=== PATIENT | female | born 1950 | race Caucasian/White ===

== ENCOUNTER 2023-06-17 21:42 | Inpatient (IN) | payer MEDICARE, OTHER ==
[~2023-06-17] VITALS: Ht 167.6 cm; Wt 73.5 kg
[2023-06-17] MEDS: IV NS 0.9% 1,000 ML BAG IV ONE (22:46)
[2023-06-17] MEDS ORDERED: VANCOMYCIN 1 GM /D5W 250 ML PB IV ONE (23:07)
[2023-06-17] MEDS ORDERED: LEVOFLOXACIN 750 MG /D5W 150ML 150 ML IV ONE (23:07)
[2023-06-17] MEDS ORDERED: ACETAMINOPHEN 325 MG TABLET ONE (23:08)
[2023-06-17] MEDS: VANCOMYCIN 1 GM in IV D5W 250 ML IV ONE (23:09)
[2023-06-17] MEDS: ACETAMINOPHEN 325 MG TABLET PO ONE (23:09)
[2023-06-17] MEDS: LEVOFLOXACIN 750 MG /D5W 150ML 150 ML IV ONE (23:09)
[2023-06-17 23:15] LABS: BASOPHILS % (AUTO) 0.5 % (0.0-2.0); EOSINOPHILS # (AUTO) 0.1 K/uL (0.0-0.7); EOSINOPHILS % (AUTO) 0.5 % (0.0-6.0); HEMATOCRIT 24 % (33-45); LYMPHOCYTES # (AUTO) 0.5 K/uL (0.8-4.8); LYMPHOCYTES % (AUTO) 4.5 % (20.0-44.0); MEAN CORPUSCULAR HEMOGLOBIN 34 PG (26.0-33.0); MEAN CORPUSCULAR HGB CONC 33 g/dl (31.0-36.0); MEAN CORPUSCULAR VOLUME 103 fL (82-100); MONOCYTES # (AUTO) 0.6 K/uL (0.1-1.30); MONOCYTES % (AUTO) 5.6 % (2.0-12.0); NEUTROPHILS # (AUTO) 9.1 K/uL (1.8-8.9); NEUTROPHILS % (AUTO) 88.9 % (43.0-81.0); PLATELET COUNT (AUTO) 130 K/uL (150-450); RED BLOOD CELL COUNT(AUTO) 2.35 MIL/uL (4.0-5.2); RED CELL DISTRIBUTION WIDTH 18.5 % (11.5-15.0); WHITE BLOOD COUNT (AUTO) 10.2 K/uL (4.3-11.0)
[2023-06-17 23:28] LABS: INR 1.1 (0.91-1.10); PARTIAL THROMBOPLASTIN TIME 26.3 SEC (24.3-34.3); PROTHROMBIN TIME 11.6 SECS (9.2-11.1)
[2023-06-17 23:29] LABS: CALCIUM, SERUM 9.2 mg/dL (8.5-10.1); CARBON DIOXIDE 24 mmol/L (21-32); CHLORIDE 106 mmol/L (98-107); CREATININE 1.7 mg/dL (0.6-1.3); GLUCOSE 88 mg/dL (74-106); POTASSIUM 3.6 mmol/L (3.5-5.1); SODIUM SERUM 136 mmol/L (136-145); UREA NITROGEN, BLOOD 42 mg/dL (7-18)
[2023-06-17 23:43] LABS: ALANINE AMINOTRANSFERASE 68 U/L (12-78); ALKALINE PHOSPHATASE 364 U/L (46-116); ASPARTATE AMINOTRANSFERASE 40 U/L (15-37); BILIRUBIN,TOTAL 3.4 mg/dL (0.2-1.0); TOTAL PROTEIN, SERUM 7.7 g/dL (6.4-8.2)
[2023-06-18 00:05] LABS: ALBUMIN 1.3 g/dL (3.4-5.0); LACTIC ACID 2.3 mmol/L (0.4-2.0)
[2023-06-18 00:22] LABS: APPEARANCE,URINE CLOUDY (CLEAR); BILIRUBIN,URINE 2+ (NEGATIVE); BLOOD, URINE 3+ Ery/uL (NEGATIVE); COLOR,URINE RED (YELLOW); KETONES,URINE TRACE mg/dL (NEGATIVE); LEUKOCYTE ESTERASE ,URINE 3+ (NEGATIVE); NITRITE, URINE POSITIVE (NEGATIVE); PROTEIN,URINE 3+ mg/dl (NEGATIVE); UGLUCOSE NEGATIVE (NEGATIVE)
[2023-06-18] MEDS ORDERED: ALBUMIN 5% 250 ML IV ONE (00:37)
[2023-06-18] MEDS: ALBUMIN 5% 12.5 GM/250 ML BOTTLE IV ONE (00:39)
[2023-06-18 02:49] LABS: ADD URINE CULTURE YES; BACTERIA,URINE 4+ /HPF (None Seen); MUCUS,URINE Many /LPF (None Seen); RBC,URINE TOO NUMEROUS TO COUN /HPF (0-2); WBC,URINE TOO NUMEROUS TO COUN /HPF (0-3)
[2023-06-18] MEDS: METRONIDAZOLE 500MG/ NS 100ML 500 MG in PREMIX 1 EA IV SCH ×2 (02:57→08:43)
[2023-06-18] MEDS ORDERED: METRONIDAZOLE 500MG/ NS 100ML 100 ML IV ONE (02:57)
[2023-06-18 03:40] VITALS: BP 96/50; TEMP 99.1; O2SAT 98
[2023-06-18 04:55] VITALS: BP 96/50; TEMP 99.1; O2SAT 98
[2023-06-18 08:00] VITALS: BP 83/49; TEMP 97.7; O2SAT 100
[2023-06-18 08:39] LABS: BASOPHILS % (AUTO) 0.1 % (0.0-2.0); EOSINOPHILS % (AUTO) 0.5 % (0.0-6.0); HEMATOCRIT 22 % (33-45); LYMPHOCYTES # (AUTO) 1.2 K/uL (0.8-4.8); LYMPHOCYTES % (AUTO) 12.4 % (20.0-44.0); MEAN CORPUSCULAR HEMOGLOBIN 35 PG (26.0-33.0); MEAN CORPUSCULAR HGB CONC 32 g/dl (31.0-36.0); MEAN CORPUSCULAR VOLUME 108 fL (82-100); MONOCYTES % (AUTO) 10.4 % (2.0-12.0); NEUTROPHILS # (AUTO) 7.3 K/uL (1.8-8.9); NEUTROPHILS % (AUTO) 76.6 % (43.0-81.0); PLATELET COUNT (AUTO) 106 K/uL (150-450); RED BLOOD CELL COUNT(AUTO) 2.01 MIL/uL (4.0-5.2); RED CELL DISTRIBUTION WIDTH 19.7 % (11.5-15.0); WHITE BLOOD COUNT (AUTO) 9.5 K/uL (4.3-11.0)
[2023-06-18] MEDS: ACETAMINOPHEN 325 MG TABLET PO PRN (08:42)
[2023-06-18 09:06] LABS: HEMOGLOBIN 6.9 g/dL (11.5-14.8)
[2023-06-18 09:24] LABS: CALCIUM, SERUM 8.9 mg/dL (8.5-10.1); CARBON DIOXIDE 22 mmol/L (21-32); CHLORIDE 106 mmol/L (98-107); CREATININE 1.7 mg/dL (0.6-1.3); GLUCOSE 85 mg/dL (74-106); MAGNESIUM 1.8 mg/dL (1.8-2.4); PHOSPHORUS 1.3 mg/dL (2.5-4.9); POTASSIUM 4.2 mmol/L (3.5-5.1); SODIUM SERUM 136 mmol/L (136-145); UREA NITROGEN, BLOOD 41 mg/dL (7-18)
[2023-06-18] MEDS ORDERED: ERGO500093 PO (09:39)
[2023-06-18] MEDS ORDERED: CITA10TA9 PO (09:39)
[2023-06-18] MEDS ORDERED: ZINC1CAP3 PO (09:39)
[2023-06-18] MEDS ORDERED: LORA10TA7 PO (09:39)
[2023-06-18] MEDS ORDERED: MULT-213 PO (09:39)
[2023-06-18] MEDS ORDERED: LEVO100T PO (09:39)
[2023-06-18] MEDS ORDERED: CRAN425C6 PO (09:39)
[2023-06-18] MEDS ORDERED: ACET-868 PO (09:39)
[2023-06-18] MEDS ORDERED: PREG75CA PO (09:39)
[2023-06-18] MEDS ORDERED: FERR325T28 PO (09:39)
[2023-06-18] MEDS ORDERED: PETR113O TP (09:39)
[2023-06-18] MEDS ORDERED: CLOT15CR5 TP (09:39)
[2023-06-18] MEDS ORDERED: HYDR-500 PO (09:39)
[2023-06-18] MEDS ORDERED: LACT1CAP69 PO (09:39)
[2023-06-18] MEDS ORDERED: ONDA-97 PO (09:39)
[2023-06-18] MEDS ORDERED: LATA7.5D EACHEYE (09:39)
[2023-06-18] MEDS ORDERED: NORM10004 IV (09:39)
[2023-06-18] MEDS ORDERED: CRAN3875 PO (09:39)
[2023-06-18] MEDS ORDERED: CHOL100043 PO (09:39)
[2023-06-18] MEDS ORDERED: DEXTROSE IV (09:39)
[2023-06-18] MEDS ORDERED: OCTR100V SQ (09:39)
[2023-06-18] MEDS ORDERED: MORP15TA PO (09:39)
[2023-06-18] MEDS ORDERED: FOLI0.4T6 PO (09:39)
[2023-06-18] MEDS ORDERED: MIDO10TA PO (09:39)
[2023-06-18] MEDS ORDERED: TPN ELECTROLYTE IV (09:39)
[2023-06-18] MEDS ORDERED: CARB15DR EACHEYE (09:39)
[2023-06-18] MEDS ORDERED: VITA1TAB20 PO (09:39)
[2023-06-18] MEDS ORDERED: ASCO-340 PO (09:39)
[2023-06-18] MEDS: PREGABALIN 25 MG CAPSULE PO SCH (11:04)
[2023-06-18 11:08] LABS: BAND % (MANUAL) 1 % (0.0-5.0); LYMPHOCYTES % (MANUAL) 10 % (16-48); MONOCYTES % (MANUAL) 4 % (0-11.0); NEUTROPHILS % (MANUAL) 79 (42-76)
[2023-06-18 11:09] LABS: ANISOCYTOSIS 1+; HYPOCHROMASIA 1+; METAMYELOCYTES % 2 % (0-0); MYELOCYTES % 3 % (0-0); PLATELET ESTIMATE INCREASED; PROMYELOCYTES % 1 % (0-0)
[2023-06-18 12:00] VITALS: BP 85/48; TEMP 97.7; O2SAT 100
[2023-06-18] MEDS ORDERED: PREGABALIN 25 MG CAPSULE PO SCH ×2 (12:00→17:00)
[2023-06-18] MEDS: IV NS 0.9% 1,000 ML IV PRN (12:07)
[2023-06-18] MEDS: Sodium Phosphate 15 MMOL in IV NS 0.9% 245 ML IV SCH (12:12)
[2023-06-18] MEDS ORDERED: TPN/PPN PER PHARMACY IV PRN (13:30)
[2023-06-18] MEDS ORDERED: LORATADINE 10 MG TABLET PO PRN (13:30)
[2023-06-18] MEDS ORDERED: IV NS 0.9% 1,000 ML BAG IV PRN (14:00)
[2023-06-18] MEDS ORDERED: hydrOXYzine PAMOATE 25 MG CAPSULE PO PRN (14:30)
[2023-06-18] MEDS ORDERED: POLYVINYL ALCOHOL 15 ML BOTTLE EACHEYE PRN (14:30)
[2023-06-18] MEDS ORDERED: DEXTROSE 50%-WATER 50 ML DISP.SYRIN IV PRN (14:30)
[2023-06-18] MEDS ORDERED: Sodium Phosphate 15 MMOL in IV NS 0.9% 245 ML IV SCH (15:00)
[2023-06-18 15:58] LABS: EOSINOPHILS # (AUTO) 0.1 K/uL (0.0-0.7); LYMPHOCYTES # (AUTO) 0.8 K/uL (0.8-4.8); MONOCYTES # (AUTO) 0.7 K/uL (0.1-1.30)
[2023-06-18 16:00] VITALS: BP 85/48; TEMP 97.5; O2SAT 100
[2023-06-18 16:21] LABS: BASOPHILS % (AUTO) 0.2 % (0.0-2.0); EOSINOPHILS % (AUTO) 1.8 % (0.0-6.0); LYMPHOCYTES % (AUTO) 11.5 % (20.0-44.0); MEAN CORPUSCULAR HEMOGLOBIN 35 PG (26.0-33.0); MEAN CORPUSCULAR HGB CONC 33 g/dl (31.0-36.0); MEAN CORPUSCULAR VOLUME 104 fL (82-100); MONOCYTES % (AUTO) 9.6 % (2.0-12.0); NEUTROPHILS # (AUTO) 5.5 K/uL (1.8-8.9); NEUTROPHILS % (AUTO) 76.9 % (43.0-81.0); PLATELET COUNT (AUTO) 103 K/uL (150-450); WHITE BLOOD COUNT (AUTO) 7.1 K/uL (4.3-11.0)
[2023-06-18 16:28] LABS: RED BLOOD CELL COUNT(AUTO) 1.88 MIL/uL (4.0-5.2)
[2023-06-18 16:29] LABS: HEMATOCRIT 20 % (33-45); HEMOGLOBIN 6.5 g/dL (11.5-14.8)
[2023-06-18] MEDS ORDERED: Medication Not On Formulary EA (Cran/Vitc/Mannose/Inulin/Brom (Uti-Stat Liquid) 30 ML) PO SCH (17:00)
[2023-06-18] MEDS: BLOOD SUGAR DIAGNOSTIC 1 EACH STRIP IN SCH (17:03)
[2023-06-18 17:22] LABS: ANISOCYTOSIS 1+; LYMPHOCYTES % (MANUAL) 9 % (16-48); MONOCYTES % (MANUAL) 7 % (0-11.0); NEUTROPHILS % (MANUAL) 84 (42-76); PLATELET ESTIMATE DECREASED
[2023-06-18] MEDS: TPN BAG 1 IV SCH (18:28)
[2023-06-18 20:00] VITALS: BP 93/44; TEMP 98.2; O2SAT 100
[2023-06-18] MEDS: LATANOPROST EYE DROP 0.005% 2.5 ML BOTTLE EACHEYE SCH (23:02)
[2023-06-18] MEDS: LEVOFLOXACIN 500 MG /D5W 100ML 500 MG in PREMIX 1 EA IV SCH (23:05)
[2023-06-19] VITALS (11 sets, daily range): BP systolic 88–106; BP diastolic 40–59; TEMP 98–98.6; O2SAT 98–100
[2023-06-19] MEDS: LEVOTHYROXINE SODIUM 100 MCG TABLET PO SCH (07:32)
[2023-06-19 07:35] LABS: CREATININE, URINE 51.6 MG/DL (30.0-125.0); URINE TOTAL PROTEIN 298.1 mg/dL (0-11.9)
[2023-06-19 07:57] LABS: BASOPHILS % (AUTO) 0.2 % (0.0-2.0); EOSINOPHILS # (AUTO) 0.1 K/uL (0.0-0.7); EOSINOPHILS % (AUTO) 1.3 % (0.0-6.0); HEMATOCRIT 22 % (33-45); HEMOGLOBIN 7.5 g/dL (11.5-14.8); LYMPHOCYTES % (AUTO) 14.8 % (20.0-44.0); MEAN CORPUSCULAR HEMOGLOBIN 33 PG (26.0-33.0); MEAN CORPUSCULAR HGB CONC 34 g/dl (31.0-36.0); MEAN CORPUSCULAR VOLUME 100 fL (82-100); MONOCYTES # (AUTO) 0.7 K/uL (0.1-1.30); MONOCYTES % (AUTO) 9.4 % (2.0-12.0); NEUTROPHILS # (AUTO) 5.2 K/uL (1.8-8.9); NEUTROPHILS % (AUTO) 74.3 % (43.0-81.0); PLATELET COUNT (AUTO) 111 K/uL (150-450); RED BLOOD CELL COUNT(AUTO) 2.25 MIL/uL (4.0-5.2); RED CELL DISTRIBUTION WIDTH 20.3 % (11.5-15.0)
[2023-06-19] MEDS: CHOLECALCIFEROL 1,000 UNIT TABLET (VIT D3) PO SCH (08:31)
[2023-06-19] MEDS: ASCORBIC ACID 500 MG TABLET PO SCH (08:32)
[2023-06-19] MEDS: FOLIC ACID 1 MG TABLET PO SCH (08:32)
[2023-06-19] MEDS: CITALOPRAM HYDROBROMIDE 10 MG TABLET PO SCH (08:32)
[2023-06-19] MEDS: FERROUS SULFATE (325 MG) 325 MG/TAB TABLET PO SCH (08:32)
[2023-06-19] MEDS: ACIDOPHILUS/BULGARICUS 1 EACH TAB.CHEW PO SCH (08:32)
[2023-06-19] MEDS: ZINC SULFATE 220 MG CAPSULE PO SCH (08:32)
[2023-06-19] MEDS: MULTIVIT W/MINERALS 1 TAB TABLET PO SCH (08:32)
[2023-06-19] MEDS: VITAMIN B COMP W-C 1 TAB TABLET PO SCH (08:32)
[2023-06-19] MEDS ORDERED: Medication Not On Formulary EA (Cranberry Extract (Cranberry) 425 MG) PO SCH (09:00)
[2023-06-19 09:04] LABS: ALANINE AMINOTRANSFERASE 42 U/L (12-78); ALKALINE PHOSPHATASE 293 U/L (46-116); ASPARTATE AMINOTRANSFERASE 24 U/L (15-37); BILIRUBIN,TOTAL 3.1 mg/dL (0.2-1.0); CALCIUM, SERUM 8.4 mg/dL (8.5-10.1); CARBON DIOXIDE 22 mmol/L (21-32); CHLORIDE 103 mmol/L (98-107); CREATININE 1.6 mg/dL (0.6-1.3); GLUCOSE 100 mg/dL (74-106); MAGNESIUM 1.6 mg/dL (1.8-2.4); PHOSPHORUS 2.6 mg/dL (2.5-4.9); POTASSIUM 3.4 mmol/L (3.5-5.1); SODIUM SERUM 133 mmol/L (136-145); TOTAL PROTEIN, SERUM 6.7 g/dL (6.4-8.2); UREA NITROGEN, BLOOD 38 mg/dL (7-18)
[2023-06-19 09:09] LABS: FERRITIN 8384 ng/mL (8-388)
[2023-06-19 09:24] LABS: ALBUMIN 1.3 g/dL (3.4-5.0); IRON, SERUM 120 ug/dl (50-175); TOTAL IRON BINDING CAPACITY 117 ug/dl (250-450)
[2023-06-19 09:38] LABS: CREATINE KINASE, TOTAL 2 U/L (26-192)
[2023-06-19] MEDS: ONDANSETRON HCL/PF 4 MG/2 ML VIAL IVP PRN (10:03)
[2023-06-19] MEDS: CLOTRIMAZOLE 1% 15 GM TUBE TP SCH (10:49)
[2023-06-19] MEDS: INSULIN REGULAR, HUMAN 100 UNIT/ML 3 ML VIAL SQ PRN (11:21)
[2023-06-19] MEDS: Magnesium 1GM/D5W 100ML PREMIX 100 ML IV SCH (11:46)
[2023-06-19 11:49] LABS: RHEUMATOID FACTOR SCREEN NEGATIVE (NEGATIVE)
[2023-06-19] MEDS: POTASSIUM CL. PREMIX PERIPHER. 50 ML IV SCH (12:32)
[2023-06-19 12:44] LABS: CHOLESTEROL 97 mg/dL (<200); HDL CHOLESTEROL 12 mg/dL (40-60); LDL 38 mg/dL (0-99); TRIGLYCERIDES 232 mg/dL (30-150)
[2023-06-19] MEDS: TPN BAG #2 IV SCH (16:18)
[2023-06-19] MEDS: VANCOMYCIN HCL 1.25 GM in IV D5W 250 ML IV SCH (23:59)
[2023-06-20] VITALS (7 sets, daily range): BP systolic 100–112; BP diastolic 54–61; TEMP 98.2–99.1; O2SAT 98–100
[2023-06-20] MEDS: Z GUARD REMEDY 4 OZ OINT TP PRN (06:30)
[2023-06-20 08:03] LABS: CALCIUM, SERUM 7.8 mg/dL (8.5-10.1); CREATININE 1.3 mg/dL (0.6-1.3); MAGNESIUM 1.6 mg/dL (1.8-2.4); PHOSPHORUS 2.8 mg/dL (2.5-4.9); POTASSIUM 3.1 mmol/L (3.5-5.1)
[2023-06-20 08:07] LABS: CANCER AG, 125 28.2 U/mL (0.0-38.1); IMMUNOGLOBULIN A, SERUM 508 mg/dL (64-422); IMMUNOGLOBULIN G, SERUM 2169 mg/dL (586-1602); IMMUNOGLOBULIN M, SERUM 82 mg/dL (26-217)
[2023-06-20 09:12] LABS: HIV-1 p24 ANTIGEN NON REACTIVE (NONREACTIVE); HIV-1/2 ANTIBODY NON REACTIVE (NONREACTIVE)
[2023-06-20 11:08] LABS: *ANA ANTI-CENTROMERE B AB <0.2 AI (0.0-0.9); *ANA ANTI-DNA(DS) AB, QN <1 IU/mL (0-9); *ANA ANTI-JO-1 <0.2 AI (0.0-0.9); *ANA ANTICHROMATIN ANTIBODY <0.2 AI (0.0-0.9); *ANA RNP ANTIBODIES <0.2 AI (0.0-0.9); *ANA SJOGREN'S ANTI-SS-A <0.2 AI (0.0-0.9); *ANA SJOGREN'S ANTI-SS-B <0.2 AI (0.0-0.9); *ANAANTI-SCLERODERMA-70 AB <0.2 AI (0.0-0.9); *ANASMITH AB <0.2 AI (0.0-0.9)
[2023-06-20] MEDS: POTASSIUM CL. PREMIX PERIPHER. 50 ML IV SCH (11:25)
[2023-06-20] MEDS: Magnesium 1GM/D5W 100ML PREMIX 100 ML IV SCH (11:47)
[2023-06-20 13:06] LABS: FREE KAPPA LT CHAINS SERUM 259.9 mg/L (3.3-19.4); FREE LAMBDA LT CHAIN SERUM 122.4 mg/L (5.7-26.3); KAPPA/LAMBDA RATIO SERUM 2.12 (0.26-1.65)
[2023-06-20 14:40] LABS: EOSINOPHILS # (AUTO) 0.1 K/uL (0.0-0.7); EOSINOPHILS % (AUTO) 0.9 % (0.0-6.0)
[2023-06-20 14:47] LABS: BASOPHILS % (AUTO) 0.1 % (0.0-2.0); HEMATOCRIT 25 % (33-45); HEMOGLOBIN 8.3 g/dL (11.5-14.8); LYMPHOCYTES % (AUTO) 17.3 % (20.0-44.0); MEAN CORPUSCULAR HEMOGLOBIN 33 PG (26.0-33.0); MEAN CORPUSCULAR HGB CONC 33 g/dl (31.0-36.0); MEAN CORPUSCULAR VOLUME 99 fL (82-100); MONOCYTES # (AUTO) 0.5 K/uL (0.1-1.30); MONOCYTES % (AUTO) 8.2 % (2.0-12.0); NEUTROPHILS # (AUTO) 4.1 K/uL (1.8-8.9); NEUTROPHILS % (AUTO) 73.5 % (43.0-81.0); PLATELET COUNT (AUTO) 109 K/uL (150-450); RED BLOOD CELL COUNT(AUTO) 2.52 MIL/uL (4.0-5.2); RED CELL DISTRIBUTION WIDTH 20.7 % (11.5-15.0); WHITE BLOOD COUNT (AUTO) 5.6 K/uL (4.3-11.0)
[2023-06-20 14:49] LABS: D-DIMER 4.33 mg/L(FEU (0.17-0.50); INR 1.13 (0.91-1.10); PARTIAL THROMBOPLASTIN TIME 31.9 SEC (24.3-34.3); PROTHROMBIN TIME 11.9 SECS (9.2-11.1)
[2023-06-20] MEDS: TPN BAG #3 IV SCH (16:27)
[2023-06-20] MEDS: VANCOMYCIN 1 GM in IV D5W 250 ML IV SCH (23:54)
[2023-06-21] VITALS (7 sets, daily range): BP systolic 104–115; BP diastolic 55–62; TEMP 97.5–98.8; O2SAT 98–100
[2023-06-21 03:11] LABS: HEPATITIS B SURFACE AB Non Reactive (.)
[2023-06-21 06:56] LABS: BASOPHILS % (AUTO) 0.2 % (0.0-2.0); EOSINOPHILS # (AUTO) 0.1 K/uL (0.0-0.7); EOSINOPHILS % (AUTO) 1.5 % (0.0-6.0); HEMATOCRIT 23 % (33-45); HEMOGLOBIN 7.7 g/dL (11.5-14.8); LYMPHOCYTES # (AUTO) 1.2 K/uL (0.8-4.8); LYMPHOCYTES % (AUTO) 22.7 % (20.0-44.0); MEAN CORPUSCULAR HEMOGLOBIN 34 PG (26.0-33.0); MEAN CORPUSCULAR HGB CONC 34 g/dl (31.0-36.0); MEAN CORPUSCULAR VOLUME 100 fL (82-100); MONOCYTES # (AUTO) 0.5 K/uL (0.1-1.30); MONOCYTES % (AUTO) 9.3 % (2.0-12.0); NEUTROPHILS # (AUTO) 3.5 K/uL (1.8-8.9); NEUTROPHILS % (AUTO) 66.3 % (43.0-81.0); PLATELET COUNT (AUTO) 111 K/uL (150-450); RED BLOOD CELL COUNT(AUTO) 2.28 MIL/uL (4.0-5.2); RED CELL DISTRIBUTION WIDTH 20.3 % (11.5-15.0); WHITE BLOOD COUNT (AUTO) 5.4 K/uL (4.3-11.0)
[2023-06-21 07:19] LABS: OCCULT BLOOD STOOL NEGATIVE (NEGATIVE)
[2023-06-21 07:22] LABS: CALCIUM, SERUM 7.4 mg/dL (8.5-10.1); CREATININE 1.3 mg/dL (0.6-1.3); MAGNESIUM 2.1 mg/dL (1.8-2.4); PHOSPHORUS 2.5 mg/dL (2.5-4.9); POTASSIUM 3.3 mmol/L (3.5-5.1)
[2023-06-21 08:10] LABS: FOLIC ACID > 20.0 ng/mL (>3.0)
[2023-06-21] MEDS: POTASSIUM PHOSPHATE MM 7.5 MMOL in IV NS 0.9% 100 ML IV SCH (11:54)
[2023-06-21] MEDS: FAT EMULSION 20% 500 ML in PREMIX 1 EA IV SCH (14:20)
[2023-06-21] MEDS: POTASSIUM CL. PREMIX PERIPHER. 50 ML IV SCH (15:43)
[2023-06-21] MEDS: TPN BAG #4 IV SCH (16:16)
[2023-06-21] MEDS: POTASSIUM CHLORIDE 20 MEQ TAB.PRT.SR PO ONE (17:57)
[2023-06-22] VITALS: BP 118/62; TEMP 99; O2SAT 100
[2023-06-22] MEDS: MORPHINE SULFATE IR 15 MG TABLET PO PRN (03:53)
[2023-06-22 04:00] VITALS: BP 114/64; TEMP 98.6; O2SAT 100
[2023-06-22 04:06] LABS: *SPE A/G RATIO 0.4 (0.7-1.7); *SPE ALBUMIN 1.8 g/dL (2.9-4.4); *SPE ALPHA-1-GLOBULIN 0.3 g/dL (0.0-0.4); *SPE ALPHA-2-GLOBULIN 0.7 g/dL (0.4-1.0); *SPE BETA GLOBULIN 0.9 g/dL (0.7-1.3); *SPE GLOBULIN, TOTAL 4.2 g/dL (2.2-3.9); *SPE M-SPIKE Not Observed g/dL (Not Observed); *SPEGAMMA GLOBULIN 2.3 g/dL (0.4-1.8)
[2023-06-22 06:56] LABS: BASOPHILS % (AUTO) 0.2 % (0.0-2.0); EOSINOPHILS # (AUTO) 0.1 K/uL (0.0-0.7); EOSINOPHILS % (AUTO) 1.2 % (0.0-6.0); HEMATOCRIT 25 % (33-45); HEMOGLOBIN 8.4 g/dL (11.5-14.8); LYMPHOCYTES # (AUTO) 1.3 K/uL (0.8-4.8); LYMPHOCYTES % (AUTO) 23.8 % (20.0-44.0); MEAN CORPUSCULAR HEMOGLOBIN 34 PG (26.0-33.0); MEAN CORPUSCULAR HGB CONC 33 g/dl (31.0-36.0); MEAN CORPUSCULAR VOLUME 101 fL (82-100); MONOCYTES # (AUTO) 0.5 K/uL (0.1-1.30); MONOCYTES % (AUTO) 9.4 % (2.0-12.0); NEUTROPHILS # (AUTO) 3.6 K/uL (1.8-8.9); NEUTROPHILS % (AUTO) 65.4 % (43.0-81.0); PLATELET COUNT (AUTO) 133 K/uL (150-450); RED CELL DISTRIBUTION WIDTH 20.5 % (11.5-15.0); WHITE BLOOD COUNT (AUTO) 5.4 K/uL (4.3-11.0)
[2023-06-22 06:57] LABS: CALCIUM, SERUM 7.8 mg/dL (8.5-10.1); CARBON DIOXIDE 16 mmol/L (21-32); CHLORIDE 106 mmol/L (98-107); CREATININE 1.2 mg/dL (0.6-1.3); GLUCOSE 115 mg/dL (74-106); MAGNESIUM 1.9 mg/dL (1.8-2.4); POTASSIUM 3.1 mmol/L (3.5-5.1); SODIUM SERUM 133 mmol/L (136-145); UREA NITROGEN, BLOOD 29 mg/dL (7-18)
[2023-06-22 08:00] VITALS: BP 101/54; TEMP 97.8; O2SAT 100
[2023-06-22 08:44] LABS: THYROID STIMULATING HORMONE 11.132 uIU/mL (0.358-3.74)
[2023-06-22] MEDS: POTASSIUM CHLORIDE 20 MEQ TAB.PRT.SR PO ONE (09:05)
[2023-06-22] MEDS: VANCOMYCIN 1 GM in IV D5W 250 ML IV SCH (10:50)
[2023-06-22] MEDS ORDERED: VANC1VIA34 XX (11:16)
[2023-06-22] MEDS ORDERED: METR500P3 IV (11:16)
[2023-06-22] MEDS ORDERED: LEVO750P5 IV (11:16)
[2023-06-22 12:26] LABS: ANISOCYTOSIS 1+; BAND % (MANUAL) 1 % (0.0-5.0); EOSINOPHILS % (MANUAL) 1 % (0-4); LYMPHOCYTES % (MANUAL) 25 % (16-48); MONOCYTES % (MANUAL) 13 % (0-11.0); MYELOCYTES % 1 % (0-0); NEUTROPHILS % (MANUAL) 59 (42-76); PLATELET ESTIMATE DECREASED
[2023-06-22] MEDS: ENSURE ENLIVE 237 ML LIQUID (VANILLA) PO SCH (14:13)
[2023-06-22] MEDS ORDERED: TPN BAG #5 IV SCH (16:00)
[2023-06-22 16:05] VITALS: BP 106/55; TEMP 97.4; O2SAT 100
== END 2023-06-22 19:15 | disposition short-term general hospital (02) | DRG 698 ==
LOC: ER 21:42 → TELE 23:53 → MED 06-22 10:47
PROVIDERS: ADMIT Nurse Practitioner Acute Care; ATTEND Nurse Practitioner Acute Care
PROC: 30233N1 Transfusion of Nonautologous Red Blood Cells into Peripheral Vein, Percutaneous Approach (ICD-10-PCS; principal; 2023-06-18)
DX: T83.592A Infection and inflammatory reaction due to indwelling ureteral stent, initial encounter (principal); A41.89 Other specified sepsis; J15.69 Pneumonia due to other Gram-negative bacteria; R65.20 Severe sepsis without septic shock; N13.6 Pyonephrosis; D61.818 Other pancytopenia; N17.9 Acute kidney failure, unspecified; N10 Acute pyelonephritis; I31.39 Other pericardial effusion (noninflammatory); J81.1 Chronic pulmonary edema; E87.20 Acidosis, unspecified; E87.1 Hypo-osmolality and hyponatremia; N18.9 Chronic kidney disease, unspecified; E87.70 Fluid overload, unspecified; Z20.822 Contact with and (suspected) exposure to COVID-19; Z87.19 Personal history of other diseases of the digestive system; Z93.3 Colostomy status; Z98.890 Other specified postprocedural states; Z90.49 Acquired absence of other specified parts of digestive tract; Z85.89 Personal history of malignant neoplasm of other organs and systems; Z88.0 Allergy status to penicillin; Z91.013 Allergy to seafood; Z96.0 Presence of urogenital implants; Z85.41 Personal history of malignant neoplasm of cervix uteri; Z85.028 Personal history of other malignant neoplasm of stomach; I13.10 Hypertensive heart and chronic kidney disease without heart failure, with stage 1 through stage 4 chronic kidney disease, or unspecified chronic kidney disease; M89.8X9 Other specified disorders of bone, unspecified site; G89.4 Chronic pain syndrome; G62.9 Polyneuropathy, unspecified; F41.9 Anxiety disorder, unspecified; F32.9 Major depressive disorder, single episode, unspecified; E03.9 Hypothyroidism, unspecified; D53.9 Nutritional anemia, unspecified; E88.09 Other disorders of plasma-protein metabolism, not elsewhere classified; G47.00 Insomnia, unspecified; Z85.44 Personal history of malignant neoplasm of other female genital organs; Z85.51 Personal history of malignant neoplasm of bladder; E80.6 Other disorders of bilirubin metabolism; L98.9 Disorder of the skin and subcutaneous tissue, unspecified; Y92.129 Unspecified place in nursing home as the place of occurrence of the external cause; Y83.1 Surgical operation with implant of artificial internal device as the cause of abnormal reaction of the patient, or of later complication, without mention of misadventure at the time of the procedure
CPT/HCPCS: 36415; 71045-TC; 76770-TC; 80048-TC; 80053-TC; 80061-TC; 80076-TC; 80202-TC; 81001; 82272-TC; 82378; 82550-TC; 82570-TC; 82607-TC; 82728-TC; 82784; 82962-TC; 83540-TC; 83605-TC; 83735-TC; 83970; 84100-TC; 84155; 84165; 84300-TC; 84439-TC; 84443-TC; 84481; 84484-TC; 85025-TC; 85027-TC; 85396; 85730-TC; 86225; 86235; 86304; 86334; 86431-TC; 86706; 86803; 86850-TC; 87040-TC; 87086-TC; 87186-TC; 87340; 87806; 92526; 92611-TC; 93307-TC; A4216; A4223; A6403; A9563; G0378; J1815; J1956; J2405; J3370; J3475; J3480; J3490; J7030; J7050; J7060; P9016; P9045

== ENCOUNTER 2023-07-14 08:22 | Inpatient (IN) | payer MEDICARE, OTHER ==
[2023-07-14] VITALS (39 sets, daily range): BP systolic 78–134; BP diastolic 28–80; TEMP 98.4–102.6; O2SAT 97–100
[~2023-07-14] VITALS: Ht 165.1 cm; Wt 82.6 kg
[~2023-07-14 08:22] MED LIST: ACET-868 PO; ASCO-340 PO; CARB15DR EACHEYE; CHOL100043 PO; CITA10TA9 PO; CLOT15CR5 TP; CRAN3875 PO; CRAN425C6 PO; DEXTROSE IV; ERGO500093 PO; FERR325T28 PO; FOLI0.4T6 PO; HYDR-500 PO; LACT1CAP69 PO; LATA7.5D EACHEYE; LEVO100T PO; LEVO750P5 IV; LORA10TA7 PO; METR500P3 IV; MIDO10TA PO; MORP15TA PO; MULT-213 PO; NORM10004 IV; OCTR100V SQ; ONDA-97 PO; PETR113O TP; PREG75CA PO; TPN ELECTROLYTE IV; VANC1VIA34 XX; VITA1TAB20 PO; ZINC1CAP3 PO
[2023-07-14 08:42] LABS: BASOPHILS % (AUTO) 0.1 % (0.0-2.0); HEMATOCRIT 26 % (33-45); HEMOGLOBIN 8.8 g/dL (11.5-14.8); LYMPHOCYTES # (AUTO) 0.8 K/uL (0.8-4.8); LYMPHOCYTES % (AUTO) 8.2 % (20.0-44.0); MEAN CORPUSCULAR HEMOGLOBIN 35 PG (26.0-33.0); MEAN CORPUSCULAR HGB CONC 34 g/dl (31.0-36.0); MEAN CORPUSCULAR VOLUME 103 fL (82-100); MONOCYTES # (AUTO) 0.4 K/uL (0.1-1.30); MONOCYTES % (AUTO) 4.1 % (2.0-12.0); NEUTROPHILS # (AUTO) 8.1 K/uL (1.8-8.9); NEUTROPHILS % (AUTO) 87.6 % (43.0-81.0); PLATELET COUNT (AUTO) 189 K/uL (150-450); RED BLOOD CELL COUNT(AUTO) 2.52 MIL/uL (4.0-5.2); RED CELL DISTRIBUTION WIDTH 18.8 % (11.5-15.0); WHITE BLOOD COUNT (AUTO) 9.2 K/uL (4.3-11.0)
[2023-07-14] MEDS ORDERED: PIPERACI/TAZO 3.375GM/D5W 50ML PB IV ONE (08:45)
[2023-07-14] MEDS: PIPERACILLIN /TAZOBACTAM 3.375 G in IV D5W 50 ML IV ONE (08:48)
[2023-07-14 08:50] LABS: APPEARANCE,URINE TURBID (CLEAR); BILIRUBIN,URINE 1+ (NEGATIVE); BLOOD, URINE 3+ Ery/uL (NEGATIVE); COLOR,URINE YELLOW (YELLOW); KETONES,URINE NEGATIVE (NEGATIVE); LEUKOCYTE ESTERASE ,URINE 3+ (NEGATIVE); NITRITE, URINE NEGATIVE (NEGATIVE); PROTEIN,URINE 3+ mg/dl (NEGATIVE); UGLUCOSE 1+ mg/dL (NEGATIVE)
[2023-07-14 08:51] LABS: INR 1.08 (0.91-1.10); PARTIAL THROMBOPLASTIN TIME 29.1 SEC (24.3-34.3); PROTHROMBIN TIME 11.4 SECS (9.2-11.1)
[2023-07-14] MEDS: IV NS 0.9% 1,000 ML BAG IV ONE ×2 (08:52→09:50)
[2023-07-14] MEDS ORDERED: POTA-88 PO (09:00)
[2023-07-14] MEDS ORDERED: INSU100V28 SQ (09:00)
[2023-07-14] MEDS ORDERED: MIDO5TAB4 PO (09:00)
[2023-07-14] MEDS ORDERED: ONDA4AMP IV (09:00)
[2023-07-14] MEDS ORDERED: MORP15TA PO (09:00)
[2023-07-14] MEDS ORDERED: POLY15DR40 EACHEYE (09:00)
[2023-07-14] MEDS ORDERED: LIDO30AD10 TP (09:00)
[2023-07-14] MEDS ORDERED: COLL30OI TP (09:00)
[2023-07-14] MEDS ORDERED: HEPA500039 SQ (09:00)
[2023-07-14] MEDS ORDERED: ZOLP5TAB2 PO (09:00)
[2023-07-14 09:01] LABS: LACTIC ACID 3.2 mmol/L (0.4-2.0)
[2023-07-14 09:02] LABS: CALCIUM, SERUM 8.4 mg/dL (8.5-10.1); CARBON DIOXIDE 24 mmol/L (21-32); CHLORIDE 103 mmol/L (98-107); CREATININE 1.9 mg/dL (0.6-1.3); GLUCOSE 114 mg/dL (74-106); POTASSIUM 3.3 mmol/L (3.5-5.1); SODIUM SERUM 139 mmol/L (136-145); UREA NITROGEN, BLOOD 38 mg/dL (7-18)
[2023-07-14 09:07] LABS: ALANINE AMINOTRANSFERASE 43 U/L (12-78); ALKALINE PHOSPHATASE 412 U/L (46-116); ASPARTATE AMINOTRANSFERASE 42 U/L (15-37); BILIRUBIN,DIRECT 1.3 mg/dL (0.0-0.2); BILIRUBIN,TOTAL 1.7 mg/dL (0.2-1.0); TOTAL PROTEIN, SERUM 7.9 g/dL (6.4-8.2)
[2023-07-14 09:11] LABS: ALBUMIN 1.2 g/dL (3.4-5.0)
[2023-07-14] MEDS: MEROPENEM 1,000 MG in IV NS 0.9% 100 ML IV ONE (09:18)
[2023-07-14 09:28] LABS: ADD URINE CULTURE YES; BACTERIA,URINE Moderate /HPF (None Seen); RBC,URINE 51-80 /HPF (0-2); SQUAMOUS EPITHELIAL CELL,UR Rare /HPF (None Seen); WBC,URINE TOO NUMEROUS TO COUN /HPF (0-3)
[2023-07-14] MEDS: NOREPINEPHRINE 8 MG in IV NS 0.9% 250 ML IV ONE (09:30)
[2023-07-14] MEDS ORDERED: ACETAMINOPHEN ES 500 MG TABLET ONE ×2 (09:42→09:43)
[2023-07-14] MEDS: ACETAMINOPHEN 325 MG TABLET PO ONE (09:43)
[2023-07-14] MEDS: VANCOMYCIN 1 GM in IV D5W 250 ML IV ONE (09:50)
[2023-07-14] MEDS ORDERED: ONDANSETRON HCL/PF 4 MG/2 ML VIAL IVP PRN (10:30)
[2023-07-14] MEDS: NOREPINEPHRINE 8 MG in IV D5W 242 ML IV PRN ×2 (11:53→16:00)
[2023-07-14] MEDS ORDERED: NOREPINEPHRINE 8 MG in IV D5W 242 ML IV PRN (12:00)
[2023-07-14] MEDS: PANTOPRAZOLE 40 MG VIAL IV SCH (12:00)
[2023-07-14] MEDS: HEPARIN SODIUM, PORCINE 5000 UNITS/1 ML VIAL SQ SCH (12:07)
[2023-07-14] MEDS: IV D5/ 0.9% NACL 1,000 ML IV PRN (12:23)
[2023-07-14] MEDS: POTASSIUM CL. PREMIX PERIPHER. 50 ML IV SCH (13:48)
[2023-07-14] MEDS: ACETAMINOPHEN 650 MG/SUPP.RECT RC PRN (16:59)
[2023-07-14] MEDS ORDERED: INSULIN REGULAR, HUMAN 100 UNIT/ML 3 ML VIAL SQ PRN (19:00)
[2023-07-14] MEDS: MEROPENEM 500 MG in IV NS 0.9% 50 ML IV SCH (21:27)
[2023-07-14] MEDS: BLOOD SUGAR DIAGNOSTIC 1 EACH STRIP VI SCH (21:35)
[2023-07-14] MEDS: *INSULIN REGULAR(HUMULIN R)HUM 100 UNIT/ML VIAL SQ PRN (21:36)
[2023-07-15] VITALS (93 sets, daily range): BP systolic 80–143; BP diastolic 30–101; TEMP 98.9–103; O2SAT 75–100
[2023-07-15] MEDS ORDERED: ACETAMINOPHEN 650 MG/20.3 ML UDC NG PRN (00:30)
[2023-07-15] MEDS: ACETAMINOPHEN 325 MG TABLET PO PRN (00:42)
[2023-07-15 04:56] LABS: BASOPHILS % (AUTO) 0.1 % (0.0-2.0); EOSINOPHILS % (AUTO) 0.1 % (0.0-6.0); HEMATOCRIT 23 % (33-45); HEMOGLOBIN 7.6 g/dL (11.5-14.8); LYMPHOCYTES # (AUTO) 0.4 K/uL (0.8-4.8); LYMPHOCYTES % (AUTO) 2.6 % (20.0-44.0); MEAN CORPUSCULAR HEMOGLOBIN 35 PG (26.0-33.0); MEAN CORPUSCULAR HGB CONC 33 g/dl (31.0-36.0); MEAN CORPUSCULAR VOLUME 105 fL (82-100); MONOCYTES # (AUTO) 0.2 K/uL (0.1-1.30); MONOCYTES % (AUTO) 1.2 % (2.0-12.0); NEUTROPHILS # (AUTO) 15.9 K/uL (1.8-8.9); PLATELET COUNT (AUTO) 127 K/uL (150-450); RED BLOOD CELL COUNT(AUTO) 2.19 MIL/uL (4.0-5.2); RED CELL DISTRIBUTION WIDTH 18.8 % (11.5-15.0); WHITE BLOOD COUNT (AUTO) 16.6 K/uL (4.3-11.0)
[2023-07-15 05:01] LABS: ERYTHROCYTE SEDIMENTATION RATE 43 MM/HR (0-30)
[2023-07-15 05:11] LABS: CREATINE KINASE, TOTAL 69 U/L (26-192)
[2023-07-15 05:24] LABS: ALANINE AMINOTRANSFERASE 47 U/L (12-78); ALKALINE PHOSPHATASE 286 U/L (46-116); ASPARTATE AMINOTRANSFERASE 57 U/L (15-37); BILIRUBIN,TOTAL 1.7 mg/dL (0.2-1.0); CALCIUM, SERUM 7.3 mg/dL (8.5-10.1); CARBON DIOXIDE 23 mmol/L (21-32); CHLORIDE 104 mmol/L (98-107); GLUCOSE 116 mg/dL (74-106); MAGNESIUM 1.3 mg/dL (1.8-2.4); PHOSPHORUS 2.5 mg/dL (2.5-4.9); POTASSIUM 3.3 mmol/L (3.5-5.1); SODIUM SERUM 138 mmol/L (136-145); TOTAL PROTEIN, SERUM 6.3 g/dL (6.4-8.2); UREA NITROGEN, BLOOD 36 mg/dL (7-18)
[2023-07-15 05:25] LABS: LACTIC ACID 3.8 mmol/L (0.4-2.0)
[2023-07-15 05:27] LABS: ALBUMIN 0.9 g/dL (3.4-5.0)
[2023-07-15] MEDS: PHENYLEPHRINE 50 MG in IV NS 0.9% 245 ML IV PRN (07:30)
[2023-07-15] MEDS: VANCOMYCIN 750 MG in IV D5W 250 ML IV SCH (09:31)
[2023-07-15] MEDS: PANTOPRAZOLE 40 MG TABLET.DR PO SCH (09:31)
[2023-07-15] MEDS: Z GUARD REMEDY 4 OZ OINT TP SCH (09:32)
[2023-07-15] MEDS: MAGNESIUM OXIDE 400 MG TABLET PO ONE (09:32)
[2023-07-15] MEDS: POTASSIUM CHLORIDE 10 MEQ TABLET.SA PO ONE (11:06)
[2023-07-15] MEDS: MORPHINE SULFATE INJ 2 MG/ML DISP.SYRIN IV PRN (15:43)
[2023-07-15] MEDS: DEXTROSE 50%-WATER 50 ML DISP.SYRIN IV PRN (17:25)
[2023-07-16] VITALS (94 sets, daily range): BP systolic 84–119; BP diastolic 30–88; TEMP 97.4–100.4; O2SAT 93–99
[2023-07-16 05:40] LABS: CALCIUM, SERUM 6.7 mg/dL (8.5-10.1); CARBON DIOXIDE 17 mmol/L (21-32); CHLORIDE 106 mmol/L (98-107); CREATININE 2.7 mg/dL (0.6-1.3); GLUCOSE 56 mg/dL (74-106); SODIUM SERUM 138 mmol/L (136-145); UREA NITROGEN, BLOOD 45 mg/dL (7-18)
[2023-07-16 06:00] LABS: BASOPHILS % (AUTO) 0.1 % (0.0-2.0); EOSINOPHILS % (AUTO) 0.1 % (0.0-6.0); HEMATOCRIT 23 % (33-45); HEMOGLOBIN 7.3 g/dL (11.5-14.8); LYMPHOCYTES # (AUTO) 0.5 K/uL (0.8-4.8); MEAN CORPUSCULAR HEMOGLOBIN 34 PG (26.0-33.0); MEAN CORPUSCULAR HGB CONC 32 g/dl (31.0-36.0); MEAN CORPUSCULAR VOLUME 106 fL (82-100); MONOCYTES # (AUTO) 0.4 K/uL (0.1-1.30); MONOCYTES % (AUTO) 1.5 % (2.0-12.0); NEUTROPHILS # (AUTO) 23.7 K/uL (1.8-8.9); NEUTROPHILS % (AUTO) 96.3 % (43.0-81.0); PLATELET COUNT (AUTO) 88 K/uL (150-450); RED BLOOD CELL COUNT(AUTO) 2.15 MIL/uL (4.0-5.2); RED CELL DISTRIBUTION WIDTH 19.9 % (11.5-15.0); WHITE BLOOD COUNT (AUTO) 24.6 K/uL (4.3-11.0)
[2023-07-16] MEDS: PHENYLEPHRINE 10 MG/ML VIAL ONE (06:16)
[2023-07-16] MEDS ORDERED: MIDODRINE HCL (5MG) 5 MG TABLET PO PRN (08:30)
[2023-07-16] MEDS ORDERED: POLYVINYL ALCOHOL 15 ML BOTTLE EACHEYE PRN (08:30)
[2023-07-16] MEDS ORDERED: LORATADINE 10 MG TABLET PO PRN (08:30)
[2023-07-16] MEDS: Sodium Chloride 154 MEQ in IV 10% DEXTROSE 1,000 ML IV SCH (08:34)
[2023-07-16] MEDS: CLOTRIMAZOLE/BETAMETASONE DIPROPIONATE 15 GM TUBE TP SCH (09:00)
[2023-07-16] MEDS: ACIDOPHILUS/BULGARICUS 1 EACH GRAN.PACK PO SCH (09:00)
[2023-07-16] MEDS ORDERED: HEPARIN SODIUM, PORCINE 5000 UNITS/1 ML VIAL SQ SCH (09:00)
[2023-07-16] MEDS: FOLIC ACID 1 MG TABLET PO SCH (09:26)
[2023-07-16] MEDS: FERROUS SULFATE (325 MG) 325 MG/TAB TABLET PO SCH (09:26)
[2023-07-16] MEDS: ZINC SULFATE 220 MG CAPSULE PO SCH (09:26)
[2023-07-16] MEDS: ASCORBIC ACID 500 MG TABLET PO SCH (09:26)
[2023-07-16] MEDS: THIAMINE HCL 100 MG TABLET PO SCH (09:26)
[2023-07-16] MEDS: CITALOPRAM HYDROBROMIDE 10 MG TABLET PO SCH (09:26)
[2023-07-16] MEDS: LEVOTHYROXINE SODIUM 100 MCG TABLET PO SCH (09:26)
[2023-07-16] MEDS: MUPIROCIN OINT 2% 22 GM TUBE NS SCH (09:26)
[2023-07-16] MEDS: PREGABALIN 25 MG CAPSULE PO SCH (10:30)
[2023-07-16] MEDS: VANCOMYCIN 750 MG in IV D5W 250 ML IV SCH (10:42)
[2023-07-16 11:18] LABS: ANISOCYTOSIS 1+; BAND % (MANUAL) 5 % (0.0-5.0); BASOPHILS % (MANUAL) 0 % (0.0-2.0); EOSINOPHILS % (MANUAL) 0 % (0-4); LYMPHOCYTES % (MANUAL) 7 % (16-48); MONOCYTES % (MANUAL) 4 % (0-11.0); NEUTROPHILS % (MANUAL) 84 (42-76); PLATELET ESTIMATE DECREASED
[2023-07-16] MEDS: Magnesium 1GM/D5W 100ML PREMIX PIGGYBACK IV ONE (11:29)
[2023-07-16] MEDS: ENSURE ENLIVE 237 ML LIQUID (VANILLA) PO SCH (12:00)
[2023-07-16] MEDS ORDERED: DOSE PER PHARMACY MICAFUNGIN 1 EA XX PRN (14:30)
[2023-07-16] MEDS ORDERED: TPN/PPN PER PHARMACY IV PRN (15:00)
[2023-07-16] MEDS: TPN BAG 1 IV SCH (15:34)
[2023-07-16] MEDS: MICAFUNGIN SODIUM 100 MG in IV NS 0.9% 100 ML IV SCH (15:35)
[2023-07-16 16:08] LABS: CREATININE, URINE 60.3 MG/DL (30.0-125.0); URINE TOTAL PROTEIN 307.2 mg/dL (0-11.9)
[2023-07-16 16:28] LABS: APPEARANCE,URINE SLIGHTLY CLOUDY (CLEAR); BILIRUBIN,URINE 2+ (NEGATIVE); BLOOD, URINE 3+ Ery/uL (NEGATIVE); COLOR,URINE YELLOW (YELLOW); KETONES,URINE NEGATIVE (NEGATIVE); LEUKOCYTE ESTERASE ,URINE 2+ (NEGATIVE); NITRITE, URINE NEGATIVE (NEGATIVE); PROTEIN,URINE 3+ mg/dl (NEGATIVE); UGLUCOSE NEGATIVE (NEGATIVE)
[2023-07-16 16:50] LABS: RBC,URINE 51-80 /HPF (0-2); WBC,URINE 21-50 /HPF (0-3)
[2023-07-16 16:51] LABS: ADD URINE CULTURE YES; BACTERIA,URINE 2+ /HPF (None Seen); SQUAMOUS EPITHELIAL CELL,UR 0-2 /HPF (None Seen); YEAST,URINE Few /HPF (None Seen)
[2023-07-16 19:10] LABS: EOSINOPHIL,URINE None Seen
[2023-07-16] MEDS: LATANOPROST EYE DROP 0.005% 2.5 ML BOTTLE EACHEYE SCH (21:17)
[2023-07-17] VITALS (61 sets, daily range): BP systolic 86–156; BP diastolic 44–119; TEMP 97.8–99.8; O2SAT 95–99
[2023-07-17 04:57] LABS: BASOPHILS % (AUTO) 0.1 % (0.0-2.0); EOSINOPHILS # (AUTO) 0.1 K/uL (0.0-0.7); EOSINOPHILS % (AUTO) 0.4 % (0.0-6.0); HEMATOCRIT 25 % (33-45); HEMOGLOBIN 8.1 g/dL (11.5-14.8); LYMPHOCYTES # (AUTO) 0.9 K/uL (0.8-4.8); LYMPHOCYTES % (AUTO) 3.5 % (20.0-44.0); MEAN CORPUSCULAR HEMOGLOBIN 34 PG (26.0-33.0); MEAN CORPUSCULAR HGB CONC 32 g/dl (31.0-36.0); MEAN CORPUSCULAR VOLUME 106 fL (82-100); MONOCYTES # (AUTO) 0.6 K/uL (0.1-1.30); MONOCYTES % (AUTO) 2.5 % (2.0-12.0); NEUTROPHILS # (AUTO) 24.6 K/uL (1.8-8.9); NEUTROPHILS % (AUTO) 93.5 % (43.0-81.0); PLATELET COUNT (AUTO) 63 K/uL (150-450); RED BLOOD CELL COUNT(AUTO) 2.35 MIL/uL (4.0-5.2); RED CELL DISTRIBUTION WIDTH 19.8 % (11.5-15.0); WHITE BLOOD COUNT (AUTO) 26.3 K/uL (4.3-11.0)
[2023-07-17 05:24] LABS: CALCIUM, SERUM 7.1 mg/dL (8.5-10.1); CARBON DIOXIDE 16 mmol/L (21-32); CHLORIDE 105 mmol/L (98-107); CREATININE 2.8 mg/dL (0.6-1.3); GLUCOSE 84 mg/dL (74-106); SODIUM SERUM 134 mmol/L (136-145); UREA NITROGEN, BLOOD 54 mg/dL (7-18)
[2023-07-17 05:34] LABS: POTASSIUM 2.8 mmol/L (3.5-5.1)
[2023-07-17] MEDS: POTASSIUM CL. PREMIX PERIPHER. 50 ML IV SCH (06:41)
[2023-07-17] MEDS ORDERED: PHENYLEPHRINE 100 MG in IV NS 0.9% 240 ML IV PRN (07:00)
[2023-07-17] MEDS: CHOLECALCIFEROL 1,000 UNIT TABLET (VIT D3) PO SCH (08:19)
[2023-07-17] MEDS: THERAHONEY GEL 1.5 OZ TUBE TP SCH (08:42)
[2023-07-17 11:57] LABS: ANISOCYTOSIS 1+; BAND % (MANUAL) 1 % (0.0-5.0); BASOPHILS % (MANUAL) 0 % (0.0-2.0); EOSINOPHILS % (MANUAL) 0 % (0-4); LYMPHOCYTES % (MANUAL) 8 % (16-48); MONOCYTES % (MANUAL) 6 % (0-11.0); NEUTROPHILS % (MANUAL) 85 (42-76); PLATELET ESTIMATE DECREASED
[2023-07-17 13:39] LABS: MAGNESIUM 1.7 mg/dL (1.8-2.4); PHOSPHORUS 2.5 mg/dL (2.5-4.9)
[2023-07-17] MEDS: PHENYLEPHRINE 100 MG in IV NS 0.9% 240 ML IV PRN (14:33)
[2023-07-17] MEDS: TPN BAG #2 IV SCH (15:59)
[2023-07-17] MEDS ORDERED: DEXTROSE 50%-WATER 50 ML DISP.SYRIN IV PRN (21:00)
[2023-07-18] VITALS (99 sets, daily range): BP systolic 87–120; BP diastolic 39–67; TEMP 97–98; O2SAT 96–100
[2023-07-18] MEDS ORDERED: BLOOD SUGAR DIAGNOSTIC 1 EACH STRIP VI SCH
[2023-07-18] MEDS: BLOOD SUGAR DIAGNOSTIC 1 EACH STRIP IN SCH (00:27)
[2023-07-18 01:10] LABS: PTH, INTACT 16 pg/mL (15-65)
[2023-07-18 04:55] LABS: BASOPHILS % (AUTO) 0.2 % (0.0-2.0); EOSINOPHILS # (AUTO) 0.2 K/uL (0.0-0.7); EOSINOPHILS % (AUTO) 1.3 % (0.0-6.0); HEMATOCRIT 24 % (33-45); HEMOGLOBIN 7.8 g/dL (11.5-14.8); LYMPHOCYTES # (AUTO) 1.6 K/uL (0.8-4.8); LYMPHOCYTES % (AUTO) 9.7 % (20.0-44.0); MEAN CORPUSCULAR HEMOGLOBIN 35 PG (26.0-33.0); MEAN CORPUSCULAR HGB CONC 33 g/dl (31.0-36.0); MEAN CORPUSCULAR VOLUME 105 fL (82-100); MONOCYTES # (AUTO) 0.6 K/uL (0.1-1.30); MONOCYTES % (AUTO) 3.7 % (2.0-12.0); NEUTROPHILS # (AUTO) 13.8 K/uL (1.8-8.9); NEUTROPHILS % (AUTO) 85.1 % (43.0-81.0); RED BLOOD CELL COUNT(AUTO) 2.24 MIL/uL (4.0-5.2); RED CELL DISTRIBUTION WIDTH 19.7 % (11.5-15.0); WHITE BLOOD COUNT (AUTO) 16.3 K/uL (4.3-11.0)
[2023-07-18 04:59] LABS: MAGNESIUM 1.5 mg/dL (1.8-2.4); PHOSPHORUS 1.9 mg/dL (2.5-4.9)
[2023-07-18 05:06] LABS: CALCIUM, SERUM 7.4 mg/dL (8.5-10.1); CARBON DIOXIDE 15 mmol/L (21-32); CHLORIDE 106 mmol/L (98-107); GLUCOSE 91 mg/dL (74-106); POTASSIUM 3.1 mmol/L (3.5-5.1); SODIUM SERUM 134 mmol/L (136-145); UREA NITROGEN, BLOOD 66 mg/dL (7-18)
[2023-07-18 05:07] LABS: PLATELET COUNT (AUTO) 36 K/uL (150-450)
[2023-07-18 05:43] LABS: NT-PRO BNP > 25000 pg/mL (0-125)
[2023-07-18 05:47] LABS: LACTIC ACID 2.3 mmol/L (0.4-2.0)
[2023-07-18 06:08] LABS: *SPE A/G RATIO 0.4 (0.7-1.7); *SPE ALBUMIN 1.6 g/dL (2.9-4.4); *SPE ALPHA-1-GLOBULIN 0.3 g/dL (0.0-0.4); *SPE ALPHA-2-GLOBULIN 0.7 g/dL (0.4-1.0); *SPE BETA GLOBULIN 0.9 g/dL (0.7-1.3); *SPE GLOBULIN, TOTAL 4.1 g/dL (2.2-3.9); *SPE M-SPIKE Not Observed g/dL (Not Observed); *SPE PROTEIN TOTAL 5.7 g/dL (6.0-8.5); *SPEGAMMA GLOBULIN 2.2 g/dL (0.4-1.8)
[2023-07-18 06:38] LABS: LYMPHOCYTES % (MANUAL) 9 % (16-48); MONOCYTES % (MANUAL) 6 % (0-11.0); NEUTROPHILS % (MANUAL) 85 (42-76)
[2023-07-18 06:41] LABS: ANISOCYTOSIS 1+; PLATELET ESTIMATE DECREASED
[2023-07-18] MEDS: ACIDOPHILUS/BULGARICUS 1 EACH TAB.CHEW PO SCH (08:13)
[2023-07-18] MEDS: THERAHONEY GEL 1.5 OZ TUBE TP SCH (08:16)
[2023-07-18 08:40] LABS: BILIRUBIN,DIRECT 3.7 mg/dL (0.0-0.2); BILIRUBIN,TOTAL 4.3 mg/dL (0.2-1.0)
[2023-07-18] MEDS: Magnesium 1GM/D5W 100ML PREMIX PIGGYBACK IV SCH (08:52)
[2023-07-18 08:56] LABS: LACTIC ACID REFLEX 2.1 mmol/L (0.4-1.9)
[2023-07-18] MEDS: TPN BAG #3 IV SCH (16:11)
[2023-07-18] MEDS: Sodium Phosphate 15 MMOL in IV NS 0.9% 245 ML IV SCH (16:38)
[2023-07-19] VITALS (99 sets, daily range): BP systolic 64–129; BP diastolic 43–95; TEMP 97–97.6; O2SAT 97–100
[2023-07-19 04:46] LABS: BASOPHILS # (AUTO) 0.1 K/uL (0.0-0.2); BASOPHILS % (AUTO) 0.4 % (0.0-2.0); EOSINOPHILS # (AUTO) 0.2 K/uL (0.0-0.7); EOSINOPHILS % (AUTO) 1.7 % (0.0-6.0); HEMATOCRIT 23 % (33-45); HEMOGLOBIN 7.5 g/dL (11.5-14.8); LYMPHOCYTES # (AUTO) 2.3 K/uL (0.8-4.8); LYMPHOCYTES % (AUTO) 16.7 % (20.0-44.0); MEAN CORPUSCULAR HEMOGLOBIN 35 PG (26.0-33.0); MEAN CORPUSCULAR HGB CONC 33 g/dl (31.0-36.0); MEAN CORPUSCULAR VOLUME 104 fL (82-100); MONOCYTES # (AUTO) 0.8 K/uL (0.1-1.30); MONOCYTES % (AUTO) 6.1 % (2.0-12.0); NEUTROPHILS # (AUTO) 10.2 K/uL (1.8-8.9); NEUTROPHILS % (AUTO) 75.1 % (43.0-81.0); RED BLOOD CELL COUNT(AUTO) 2.17 MIL/uL (4.0-5.2); RED CELL DISTRIBUTION WIDTH 18.8 % (11.5-15.0); WHITE BLOOD COUNT (AUTO) 13.6 K/uL (4.3-11.0)
[2023-07-19 05:02] LABS: CALCIUM, SERUM 7.9 mg/dL (8.5-10.1); CARBON DIOXIDE 17 mmol/L (21-32); CHLORIDE 107 mmol/L (98-107); CREATININE 2.9 mg/dL (0.6-1.3); GLUCOSE 104 mg/dL (74-106); MAGNESIUM 1.9 mg/dL (1.8-2.4); PHOSPHORUS 3.4 mg/dL (2.5-4.9); SODIUM SERUM 135 mmol/L (136-145); UREA NITROGEN, BLOOD 75 mg/dL (7-18)
[2023-07-19 05:20] LABS: PLATELET COUNT (AUTO) 42 K/uL (150-450)
[2023-07-19 05:22] LABS: POTASSIUM 2.8 mmol/L (3.5-5.1)
[2023-07-19 05:56] LABS: BAND % (MANUAL) 4 % (0.0-5.0); NEUTROPHILS % (MANUAL) 69 (42-76)
[2023-07-19 05:57] LABS: EOSINOPHILS % (MANUAL) 2 % (0-4); LYMPHOCYTES % (MANUAL) 21 % (16-48); MONOCYTES % (MANUAL) 4 % (0-11.0); PLATELET ESTIMATE DECREASED
[2023-07-19 05:58] LABS: ANISOCYTOSIS 1+
[2023-07-19] MEDS: POTASSIUM CL. PREMIX PERIPHER. 50 ML IV SCH (06:26)
[2023-07-19] MEDS: TPN BAG #4 IV SCH (15:56)
[2023-07-19] MEDS: SODIUM CL FOR INHALATION 3% 15 ML VIAL.NEB IH ONE (19:30)
[2023-07-20] VITALS (80 sets, daily range): BP systolic 80–130; BP diastolic 43–81; TEMP 97.5–98.1; O2SAT 97–100
[2023-07-20 04:55] LABS: BASOPHILS % (AUTO) 0.5 % (0.0-2.0); EOSINOPHILS # (AUTO) 0.2 K/uL (0.0-0.7); EOSINOPHILS % (AUTO) 2.3 % (0.0-6.0); HEMATOCRIT 21 % (33-45); HEMOGLOBIN 7.3 g/dL (11.5-14.8); LYMPHOCYTES # (AUTO) 1.6 K/uL (0.8-4.8); MEAN CORPUSCULAR HEMOGLOBIN 36 PG (26.0-33.0); MEAN CORPUSCULAR HGB CONC 35 g/dl (31.0-36.0); MEAN CORPUSCULAR VOLUME 103 fL (82-100); MONOCYTES # (AUTO) 0.5 K/uL (0.1-1.30); MONOCYTES % (AUTO) 6.3 % (2.0-12.0); NEUTROPHILS # (AUTO) 6.1 K/uL (1.8-8.9); NEUTROPHILS % (AUTO) 71.9 % (43.0-81.0); RED BLOOD CELL COUNT(AUTO) 2.03 MIL/uL (4.0-5.2); RED CELL DISTRIBUTION WIDTH 18.6 % (11.5-15.0); WHITE BLOOD COUNT (AUTO) 8.5 K/uL (4.3-11.0)
[2023-07-20 05:35] LABS: MAGNESIUM 1.8 mg/dL (1.8-2.4); PHOSPHORUS 3.2 mg/dL (2.5-4.9)
[2023-07-20 05:43] LABS: CALCIUM, SERUM 8.2 mg/dL (8.5-10.1); CARBON DIOXIDE 17 mmol/L (21-32); CHLORIDE 107 mmol/L (98-107); CREATININE 2.8 mg/dL (0.6-1.3); GLUCOSE 100 mg/dL (74-106); NT-PRO BNP > 25000 pg/mL (0-125); POTASSIUM 3.1 mmol/L (3.5-5.1); SODIUM SERUM 135 mmol/L (136-145)
[2023-07-20 06:08] LABS: UREA NITROGEN, BLOOD 84 mg/dL (7-18)
[2023-07-20 06:50] LABS: PLATELET COUNT (AUTO) 45 K/uL (150-450)
[2023-07-20] MEDS: POTASSIUM CL. PREMIX PERIPHER. 50 ML IV SCH (08:51)
[2023-07-20 08:55] LABS: INR 1.08 (0.91-1.10); PROTHROMBIN TIME 11.4 SECS (9.2-11.1)
[2023-07-20] MEDS ORDERED: ROCURONIUM BROMIDE 50 MG/5 ML ONE (09:30)
[2023-07-20 11:44] LABS: ANISOCYTOSIS 1+; BASOPHILS % (MANUAL) 0 % (0.0-2.0); EOSINOPHILS % (MANUAL) 2 % (0-4); HYPOCHROMASIA 1+; LYMPHOCYTES % (MANUAL) 16 % (16-48); MONOCYTES % (MANUAL) 9 % (0-11.0); NEUTROPHILS % (MANUAL) 73 (42-76); PLATELET ESTIMATE DECREASED
[2023-07-20] MEDS ORDERED: TPN BAG #5 IV SCH ×2 (14:30→16:00)
[2023-07-20] MEDS: TPN BAG #5 IV SCH (16:21)
[2023-07-20] MEDS: NEPRO 1,000 ML BOTTLE GT PRN (17:20)
[2023-07-21] VITALS (26 sets, daily range): BP systolic 96–124; BP diastolic 45–90; TEMP 97.6–98; O2SAT 92–100
[2023-07-21 04:52] LABS: CALCIUM, SERUM 8.6 mg/dL (8.5-10.1); CARBON DIOXIDE 17 mmol/L (21-32); CHLORIDE 108 mmol/L (98-107); CREATININE 2.7 mg/dL (0.6-1.3); GLUCOSE 105 mg/dL (74-106); MAGNESIUM 1.7 mg/dL (1.8-2.4); PHOSPHORUS 3.2 mg/dL (2.5-4.9); POTASSIUM 2.9 mmol/L (3.5-5.1); SODIUM SERUM 137 mmol/L (136-145)
[2023-07-21 04:54] LABS: UREA NITROGEN, BLOOD 88 mg/dL (7-18)
[2023-07-21] MEDS: POTASSIUM CHLORIDE 20 MEQ POWDER PACKET GT SCH (08:54)
[2023-07-21] MEDS: MAGNESIUM OXIDE 400 MG TABLET PO SCH (08:54)
[2023-07-21] MEDS ORDERED: POTASSIUM CL. PREMIX PERIPHER. 50 ML IV SCH (09:00)
[2023-07-21] MEDS: Magnesium 1GM/D5W 100ML PREMIX 100 ML IV SCH (09:03)
[2023-07-21] MEDS: VANCOMYCIN 750 MG in IV D5W 250 ML IV SCH (11:18)
[2023-07-21] MEDS ORDERED: TPN BAG #6 IV SCH (16:00)
[2023-07-21] MEDS: INSULIN REGULAR, HUMAN 100 UNIT/ML 3 ML VIAL SQ PRN (17:42)
[2023-07-22] VITALS: BP 112/61; TEMP 97.6; O2SAT 98
[2023-07-22] MEDS: IV D5/ 0.9% NACL 1,000 ML IV PRN (02:46)
[2023-07-22 04:00] VITALS: BP 102/60; TEMP 98; O2SAT 98
[2023-07-22 06:47] LABS: CALCIUM, SERUM 8.9 mg/dL (8.5-10.1); CARBON DIOXIDE 13 mmol/L (21-32); CHLORIDE 109 mmol/L (98-107); CREATININE 2.6 mg/dL (0.6-1.3); GLUCOSE 102 mg/dL (74-106); MAGNESIUM 3.1 mg/dL (1.8-2.4); PHOSPHORUS 3.1 mg/dL (2.5-4.9); POTASSIUM 3.3 mmol/L (3.5-5.1); SODIUM SERUM 136 mmol/L (136-145)
[2023-07-22 06:59] LABS: UREA NITROGEN, BLOOD 82 mg/dL (7-18)
[2023-07-22 08:00] VITALS: BP 110/63; TEMP 97.5; O2SAT 94
[2023-07-22 12:00] VITALS: BP 118/57; TEMP 97.3; O2SAT 91
[2023-07-22] MEDS: POTASSIUM CHLORIDE 20 MEQ POWDER PACKET GT ONE (12:04)
[2023-07-22 16:00] VITALS: BP 107/43; TEMP 97.5; O2SAT 98
[2023-07-22 20:00] VITALS: BP 120/69; TEMP 98.6; O2SAT 96
[2023-07-23] VITALS (15 sets, daily range): BP systolic 112–131; BP diastolic 50–74; TEMP 97–98.7; O2SAT 92–98
[2023-07-23 07:00] LABS: BASOPHILS # (AUTO) 0.1 K/uL (0.0-0.2); BASOPHILS % (AUTO) 0.4 % (0.0-2.0); EOSINOPHILS # (AUTO) 0.1 K/uL (0.0-0.7); EOSINOPHILS % (AUTO) 0.6 % (0.0-6.0); LYMPHOCYTES # (AUTO) 1.6 K/uL (0.8-4.8); MEAN CORPUSCULAR HEMOGLOBIN 34 PG (26.0-33.0); MEAN CORPUSCULAR HGB CONC 33 g/dl (31.0-36.0); MEAN CORPUSCULAR VOLUME 105 fL (82-100); MONOCYTES # (AUTO) 0.7 K/uL (0.1-1.30); MONOCYTES % (AUTO) 4.7 % (2.0-12.0); NEUTROPHILS # (AUTO) 12.4 K/uL (1.8-8.9); NEUTROPHILS % (AUTO) 83.3 % (43.0-81.0); PLATELET COUNT (AUTO) 52 K/uL (150-450); RED CELL DISTRIBUTION WIDTH 18.1 % (11.5-15.0); WHITE BLOOD COUNT (AUTO) 14.9 K/uL (4.3-11.0)
[2023-07-23 07:47] LABS: RED BLOOD CELL COUNT(AUTO) 1.89 MIL/uL (4.0-5.2)
[2023-07-23 07:50] LABS: HEMATOCRIT 20 % (33-45); HEMOGLOBIN 6.5 g/dL (11.5-14.8)
[2023-07-23 08:54] LABS: CALCIUM, SERUM 8.5 mg/dL (8.5-10.1); CARBON DIOXIDE 14 mmol/L (21-32); CHLORIDE 112 mmol/L (98-107); CREATININE 2.5 mg/dL (0.6-1.3); GLUCOSE 81 mg/dL (74-106); MAGNESIUM 2.9 mg/dL (1.8-2.4); PHOSPHORUS 4.9 mg/dL (2.5-4.9); POTASSIUM 3.7 mmol/L (3.5-5.1); SODIUM SERUM 140 mmol/L (136-145); UREA NITROGEN, BLOOD 73 mg/dL (7-18)
[2023-07-23] MEDS: Z GUARD REMEDY 4 OZ OINT TP PRN (10:13)
[2023-07-23 10:50] LABS: LYMPHOCYTES % (MANUAL) 9 % (16-48); MONOCYTES % (MANUAL) 4 % (0-11.0); NEUTROPHILS % (MANUAL) 87 (42-76); PLATELET ESTIMATE DECREASED
[2023-07-23 10:51] LABS: ANISOCYTOSIS 1+
[2023-07-23] MEDS ORDERED: DIATR MEGLU/DIATRIZOATE SODIUM 30 ML BOTTLE (GASTROGRAPHIN) ONE (11:20)
[2023-07-23] MEDS ORDERED: IV D5/ 0.9% NACL 1,000 ML IV PRN (18:30)
[2023-07-23] MEDS: PANTOPRAZOLE 40 MG VIAL IV SCH (19:01)
[2023-07-23 20:01] LABS: HEMOGLOBIN 8.8 g/dL (11.5-14.8)
[2023-07-23 22:06] LABS: ABG BASE EXCESS -12.8 mmol/L; ABG OXYGEN SATURATION 89.8 % (92.0-98.5); ABG PCO2 28.6 mmHg (35.0-45.0); ABG PO2 67.1 mmHg (75.0-100.0); ABG TOTAL HEMOGLOBIN 9.5 G/dL (12.0-16.0); COHb 0.2 % (0.5-1.5); MetHb 0.3 % (0.0-1.5); O2Hb 89.4 % (94.0-97.0); SITE, ABG Left Radial; VENT MODE, BG 6L NC
[2023-07-23] MEDS: FUROSEMIDE 20 MG/2 ML VIAL IV ONE (22:41)
[2023-07-24] VITALS (39 sets, daily range): BP systolic 88–142; BP diastolic 46–98; TEMP 96.9–98; O2SAT 87–100
[2023-07-24] MEDS: IV D5/ 0.9% NACL 1,000 ML IV PRN (01:48)
[2023-07-24 04:16] LABS: BASOPHILS % (AUTO) 0.2 % (0.0-2.0); EOSINOPHILS # (AUTO) 0.1 K/uL (0.0-0.7); EOSINOPHILS % (AUTO) 0.6 % (0.0-6.0); HEMATOCRIT 25 % (33-45); HEMOGLOBIN 8.3 g/dL (11.5-14.8); LYMPHOCYTES # (AUTO) 1.6 K/uL (0.8-4.8); LYMPHOCYTES % (AUTO) 9.4 % (20.0-44.0); MEAN CORPUSCULAR HEMOGLOBIN 34 PG (26.0-33.0); MEAN CORPUSCULAR HGB CONC 33 g/dl (31.0-36.0); MEAN CORPUSCULAR VOLUME 101 fL (82-100); MONOCYTES # (AUTO) 0.5 K/uL (0.1-1.30); NEUTROPHILS # (AUTO) 14.3 K/uL (1.8-8.9); NEUTROPHILS % (AUTO) 86.8 % (43.0-81.0); PLATELET COUNT (AUTO) 53 K/uL (150-450); RED BLOOD CELL COUNT(AUTO) 2.47 MIL/uL (4.0-5.2); RED CELL DISTRIBUTION WIDTH 18.8 % (11.5-15.0); WHITE BLOOD COUNT (AUTO) 16.5 K/uL (4.3-11.0)
[2023-07-24 04:45] LABS: CALCIUM, SERUM 9.2 mg/dL (8.5-10.1); CARBON DIOXIDE 15 mmol/L (21-32); CHLORIDE 111 mmol/L (98-107); CREATININE 2.4 mg/dL (0.6-1.3); GLUCOSE 82 mg/dL (74-106); POTASSIUM 3.7 mmol/L (3.5-5.1); SODIUM SERUM 140 mmol/L (136-145); UREA NITROGEN, BLOOD 68 mg/dL (7-18)
[2023-07-24 10:27] LABS: ANISOCYTOSIS 1+; BASOPHILS % (MANUAL) 0 % (0.0-2.0); EOSINOPHILS % (MANUAL) 0 % (0-4); LYMPHOCYTES % (MANUAL) 11 % (16-48); MONOCYTES % (MANUAL) 2 % (0-11.0); NEUTROPHILS % (MANUAL) 87 (42-76); PLATELET ESTIMATE DECREASED
[2023-07-24] MEDS ORDERED: VANCOMYCIN 750 MG in IV D5W 250 ML IV SCH (11:00)
[2023-07-24 17:49] LABS: ABG BASE EXCESS -13.2 mmol/L; ABG OXYGEN SATURATION 99.5 % (92.0-98.5); ABG PCO2 29.7 mmHg (35.0-45.0); ABG PO2 304.8 mmHg (75.0-100.0); AaDO2 378.5 mmHg; COHb 0.3 % (0.5-1.5); MetHb 0.2 % (0.0-1.5); SITE, ABG Right Brachial; VENT MODE, BG NON REBREATHER
[2023-07-25] VITALS (36 sets, daily range): BP systolic 98–138; BP diastolic 45–86; TEMP 94.5–97.8; O2SAT 91–100
[2023-07-25] MEDS: hydrOXYzine PAMOATE 25 MG CAPSULE PO PRN (03:17)
[2023-07-25 03:56] LABS: BASOPHILS % (AUTO) 0.2 % (0.0-2.0); EOSINOPHILS # (AUTO) 0.1 K/uL (0.0-0.7); EOSINOPHILS % (AUTO) 0.3 % (0.0-6.0); HEMATOCRIT 24 % (33-45); LYMPHOCYTES % (AUTO) 4.8 % (20.0-44.0); MEAN CORPUSCULAR HEMOGLOBIN 33 PG (26.0-33.0); MEAN CORPUSCULAR HGB CONC 33 g/dl (31.0-36.0); MEAN CORPUSCULAR VOLUME 100 fL (82-100); MONOCYTES # (AUTO) 0.5 K/uL (0.1-1.30); MONOCYTES % (AUTO) 2.2 % (2.0-12.0); NEUTROPHILS # (AUTO) 19.5 K/uL (1.8-8.9); NEUTROPHILS % (AUTO) 92.5 % (43.0-81.0); RED CELL DISTRIBUTION WIDTH 19.3 % (11.5-15.0); WHITE BLOOD COUNT (AUTO) 21.1 K/uL (4.3-11.0)
[2023-07-25 04:04] LABS: CALCIUM, SERUM 7.6 mg/dL (8.5-10.1); CARBON DIOXIDE 16 mmol/L (21-32); CHLORIDE 113 mmol/L (98-107); CREATININE 2.6 mg/dL (0.6-1.3); GLUCOSE 87 mg/dL (74-106); POTASSIUM 3.5 mmol/L (3.5-5.1); SODIUM SERUM 142 mmol/L (136-145); UREA NITROGEN, BLOOD 65 mg/dL (7-18)
[2023-07-25 04:07] LABS: PLATELET COUNT (AUTO) 47 K/uL (150-450)
[2023-07-25 07:55] LABS: ANISOCYTOSIS 1+; BAND % (MANUAL) 2 % (0.0-5.0); BASOPHILS % (MANUAL) 0 % (0.0-2.0); EOSINOPHILS % (MANUAL) 0 % (0-4); LYMPHOCYTES % (MANUAL) 7 % (16-48); MONOCYTES % (MANUAL) 4 % (0-11.0); NEUTROPHILS % (MANUAL) 87 (42-76); PLATELET ESTIMATE DECREASED
[2023-07-25] MEDS ORDERED: VANCOMYCIN 750 MG in IV D5W 250 ML IV SCH (11:00)
[2023-07-25 11:21] LABS: ABG BASE EXCESS -12.8 mmol/L; ABG OXYGEN SATURATION 89.2 % (92.0-98.5); ABG PCO2 19.4 mmHg (35.0-45.0); ABG PH 7.367 (7.350-7.450); ABG PO2 62.6 mmHg (75.0-100.0); ABG TOTAL HEMOGLOBIN 8.9 G/dL (12.0-16.0); AaDO2 221.8 mmHg; COHb 0.2 % (0.5-1.5); MetHb 0.1 % (0.0-1.5); O2Hb 88.9 % (94.0-97.0); SITE, ABG Right Radial
[2023-07-25] MEDS: METRONIDAZOLE 500MG/ NS 100ML 500 MG in PREMIX 1 EA IV SCH (11:55)
[2023-07-25] MEDS: FUROSEMIDE 20 MG/2 ML VIAL IV SCH (13:49)
[2023-07-25] MEDS: CEFTAZIDIME/AVIBACTAM 0.94 GM in IV NS 0.9% 100 ML IV SCH (13:56)
[2023-07-26] VITALS (8 sets, daily range): BP systolic 112–143; BP diastolic 60–71; TEMP 97.3–97.5; O2SAT 98–100
[2023-07-26] MEDS: MORPHINE SULFATE INJ 2 MG/ML DISP.SYRIN IV PRN (09:33)
[2023-07-26] MEDS ORDERED: VANCOMYCIN 750 MG in IV D5W 250 ML IV SCH (11:00)
[2023-07-27 05:18] VITALS: O2SAT 99
[2023-07-27 10:41] VITALS: BP 136/71; TEMP 98.1; O2SAT 97
[2023-07-27 21:49] VITALS: BP 122/58; TEMP 97.3; O2SAT 100
== END 2023-07-27 23:10 | disposition hospice, home (50) | DRG 871 ==
LOC: ER 08:29 → ICU 10:56 → TELE1 07-21 13:44 → TELE-TD 07-21 14:08 → TELE1 07-22 08:33 → ICU 07-23 16:59 → MED 07-25 20:03
PROVIDERS: ADMIT Nurse Practitioner Acute Care; ATTEND Student in an Organized Health Care Education/Training Program
PROC: 02HV33Z Insertion of Infusion Device into Superior Vena Cava, Percutaneous Approach (ICD-10-PCS; principal; 2023-07-15)
PROC: B548ZZA Ultrasonography of Superior Vena Cava, Guidance (ICD-10-PCS; 2023-07-15)
PROC: 30233R1 Transfusion of Nonautologous Platelets into Peripheral Vein, Percutaneous Approach (ICD-10-PCS; 2023-07-18)
PROC: 0DH63UZ Insertion of Feeding Device into Stomach, Percutaneous Approach (ICD-10-PCS; 2023-07-20)
PROC: 30233N1 Transfusion of Nonautologous Red Blood Cells into Peripheral Vein, Percutaneous Approach (ICD-10-PCS; 2023-07-23)
DX: B37.7 Candidal sepsis (principal); E43 Unspecified severe protein-calorie malnutrition; L89.623 Pressure ulcer of left heel, stage 3; G92.8 Other toxic encephalopathy; J69.0 Pneumonitis due to inhalation of food and vomit; N17.0 Acute kidney failure with tubular necrosis; R65.21 Severe sepsis with septic shock; J15.69 Pneumonia due to other Gram-negative bacteria; K65.1 Peritoneal abscess; J96.90 Respiratory failure, unspecified, unspecified whether with hypoxia or hypercapnia; N39.0 Urinary tract infection, site not specified; E87.20 Acidosis, unspecified; D68.69 Other thrombophilia; I31.39 Other pericardial effusion (noninflammatory); N13.6 Pyonephrosis; E87.1 Hypo-osmolality and hyponatremia; C78.6 Secondary malignant neoplasm of retroperitoneum and peritoneum; N18.9 Chronic kidney disease, unspecified; I12.9 Hypertensive chronic kidney disease with stage 1 through stage 4 chronic kidney disease, or unspecified chronic kidney disease; Z20.822 Contact with and (suspected) exposure to COVID-19; D53.9 Nutritional anemia, unspecified; D69.59 Other secondary thrombocytopenia; E03.9 Hypothyroidism, unspecified; E11.22 Type 2 diabetes mellitus with diabetic chronic kidney disease; Z51.5 Encounter for palliative care; Z66 Do not resuscitate; Z74.01 Bed confinement status; Z87.440 Personal history of urinary (tract) infections; Z93.3 Colostomy status; Z90.49 Acquired absence of other specified parts of digestive tract; Z88.0 Allergy status to penicillin; F41.9 Anxiety disorder, unspecified; F32.9 Major depressive disorder, single episode, unspecified; G47.00 Insomnia, unspecified; M21.372 Foot drop, left foot; M21.371 Foot drop, right foot; Z68.30 Body mass index [BMI] 30.0-30.9, adult; S31.000A Unspecified open wound of lower back and pelvis without penetration into retroperitoneum, initial encounter; X58.XXXA Exposure to other specified factors, initial encounter; Y93.9 Activity, unspecified; Y92.129 Unspecified place in nursing home as the place of occurrence of the external cause; R16.2 Hepatomegaly with splenomegaly, not elsewhere classified; L98.8 Other specified disorders of the skin and subcutaneous tissue; N73.9 Female pelvic inflammatory disease, unspecified; M24.571 Contracture, right ankle; L89.156 Pressure-induced deep tissue damage of sacral region; Z22.322 Carrier or suspected carrier of Methicillin resistant Staphylococcus aureus; B96.4 Proteus (mirabilis) (morganii) as the cause of diseases classified elsewhere; Z93.2 Ileostomy status; C67.9 Malignant neoplasm of bladder, unspecified; E83.42 Hypomagnesemia; E83.39 Other disorders of phosphorus metabolism; S91.302A Unspecified open wound, left foot, initial encounter; R13.10 Dysphagia, unspecified; M89.8X9 Other specified disorders of bone, unspecified site; R62.7 Adult failure to thrive; Z79.4 Long term (current) use of insulin; Z87.19 Personal history of other diseases of the digestive system; G89.29 Other chronic pain; E87.6 Hypokalemia; E88.09 Other disorders of plasma-protein metabolism, not elsewhere classified; Z85.028 Personal history of other malignant neoplasm of stomach; Z85.41 Personal history of malignant neoplasm of cervix uteri
CPT/HCPCS: 36415; 36569; 36600; 43246; 71045-TC; 76770-TC; 80048-TC; 80053-TC; 80061-TC; 80076-TC; 80202-TC; 81001; 82040-TC; 82247-TC; 82248-TC; 82533; 82550-TC; 82570-TC; 82803-TC; 82962-TC; 83605-TC; 83735-TC; 83880; 83970; 84100-TC; 84155; 84165; 84300-TC; 84478-TC; 84484-TC; 85025-TC; 85027-TC; 85610-TC; 85652-TC; 85730-TC; 86850-TC; 87040-TC; 87081-TC; 87086-TC; 92526; 92611-TC; 93307-TC; 93970-TC; 94760-TC; 94762-TC; 94799-TC; A4216; A4218; A4223; A6253; A6403; A9563; C9113; G0378; J1644; J1815; J1940; J2185; J2248; J2270; J2543; J2704; J3370; J3371; J3475; J3480; J3490; J7030; J7040; J7042; J7050; J7060; J7120; P9016; P9034; Q0177; Q9963